=== PATIENT | female | born 1985 | race Caucasian/White ===

== ENCOUNTER 2023-11-02 19:34 | Emergency (ER) | payer MEDICAID ==
[~2023-11-02] VITALS: Ht 167.6 cm; Wt 70.0 kg
[2023-11-02 20:02] VITALS: O2SAT 98
[2023-11-02] MEDS: HALOPERIDOL LACTATE 5MG/ML VIAL IM STA (20:11)
[2023-11-02] MEDS: DIPHENHYDRAMINE 50MG/ML VIAL IM STA (20:11)
[2023-11-02] MEDS: LORAZEPAM 2MG/ML INJ IM STA (20:11)
[2023-11-02 22:58] LABS: CLARITY URINE CLEAR (CLEAR); COLOR URINE YELLOW (YELLOW); GLUCOSE URINE NEGATIVE (NEGATIVE); KETONES URINE NEGATIVE (NEGATIVE); LEUKOCYTE ESTERASE URINE 3+ (NEGATIVE); NITRITE URINE POSITIVE (NEGATIVE); OCCULT BLOOD URINE TRACE (NEGATIVE); PROTEIN URINE NEGATIVE (NEGATIVE); SPECIFIC GRAVITY URINE 1.002 (1.005-1.030); UROBILINOGEN URINE 0.2 E.U./dL (0.2-1.0)
[2023-11-02] MEDS: LORAZEPAM 2MG/ML INJ IM NR (23:02)
[2023-11-02] MEDS: DIPHENHYDRAMINE 50MG/ML VIAL IM NR (23:03)
[2023-11-02] MEDS: HALOPERIDOL LACTATE 5MG/ML VIAL IM NR (23:03)
[2023-11-02 23:09] LABS: *AMPHETAMINES SCREEN URINE PRESUMPTIVE POSITIVE (NEGATIVE); *BARBITURATES SCREEN URINE NEGATIVE (NEGATIVE); *BENZODIAZEPINES SCREEN URINE NEGATIVE (NEGATIVE); *COCAINE SCREEN URINE NEGATIVE (NEGATIVE); CANNABINOID URINE SCREEN NEGATIVE (NEGATIVE); METHADONE URINE SCREEN NEGATIVE (NEGATIVE); OPIATES URINE SCREEN NEGATIVE (NEGATIVE)
[2023-11-02 23:10] LABS: ECSTASY MDMA SCREEN URINE NEGATIVE (NEGATIVE); PHENCYCLIDINE URINE SCREEN NEGATIVE (NEGATIVE)
[2023-11-02 23:25] LABS: BACTERIA URINE 2+; SQUAMOUS EPITHELIAL CELL URINE FEW /lpf (RARE/1+)
[2023-11-02 23:26] LABS: RBC URINE 0-2 /hpf (0-2)
[2023-11-02 23:50] LABS: CHLORIDE 109 mEq/L (98-107); POTASSIUM 3.5 mEq/L (3.5-5.1); SODIUM 141 mEq/L (136-145)
[2023-11-02 23:51] LABS: CARBON DIOXIDE 27 mEq/L (21-32)
[2023-11-02 23:52] LABS: CALCIUM 9.9 mg/dL (8.7-10.4)
[2023-11-02 23:56] LABS: CREATININE 0.8 mg/dL (0.6-1.0); GLUCOSE 118 mg/dL (70-105)
[2023-11-02 23:57] LABS: UREA NITROGEN BLOOD 14 mg/dL (9-23)
[2023-11-02 23:58] LABS: ACETAMINOPHEN < 2 ug/mL (10-30); ALANINE AMINOTRANSFERASE 15 IU/L (10-49); ASPARTATE AMINOTRANSFERASE 19 IU/L (<34)
[2023-11-02 23:59] LABS: BILIRUBIN TOTAL 0.8 mg/dL (0.1-1.0)
[2023-11-03 00:01] LABS: THYROID STIMULATING HORMONE 1.47 uIU/mL (0.55-4.78)
[2023-11-03 00:02] LABS: ETHANOL BLOOD < 10 mg/dL (<10)
[2023-11-03 00:03] LABS: BASOPHILS % 0.7 % (0.0-2.0); EOSINOPHILS % 1.1 % (0.0-5.0); HEMATOCRIT. 32.6 % (36.0-48.0); HEMOGLOBIN. 11.2 g/dL (12.0-16.0); LYMPHOCYTES % 28.3 % (20.0-50.0); MEAN CORPUSCULAR HEMOGLOBIN 30.2 pg (28.0-32.0); MEAN CORPUSCULAR HGB CONC 34.5 g/dL (31.0-37.0); MEAN CORPUSCULAR VOLUME 87.7 fL (81.0-99.0); MONOCYTES % 5.8 % (2.0-8.0); NEUTROPHILS % 64.1 % (40.0-76.0); PLATELET 254 x1000/uL (130-400); RED BLOOD CELL COUNT 3.72 mill/uL (4.2-5.4); RED CELL DISTRIBUTION WIDTH 14.2 % (11.6-14.6); WHITE BLOOD COUNT 6.5 x1000/uL (4.5-11.0)
[2023-11-03 00:18] LABS: HCG SCREEN NEGATIVE
[2023-11-03] MEDS ORDERED: LORAZEPAM 1MG TABLET PO ONE (19:15)
[2023-11-03] MEDS: LORAZEPAM 2MG/ML INJ IM ONE (20:55)
[2023-11-03] MEDS: NITROFURANTOIN 100MG M/M CAPSULE PO SCH (20:55)
[2023-11-04 13:07] VITALS: BP 98/59; PULSE 77; RESP 16; TEMP 98.9
== END 2023-11-04 13:23 | disposition still patient (30) ==
LOC: ER 19:34
DX: R46.2 Strange and inexplicable behavior (principal); Z20.822 Contact with and (suspected) exposure to COVID-19
CPT/HCPCS: 80053; 80305; 81003; 80307; 80329; 80320; 84703; 84443; 85025; 36415; 96372; 99285; 87426; J1200; J1630; J2060 ×2; Z7610; G0480